=== PATIENT | male | born 1990 | race Caucasian/White ===

== ENCOUNTER 2021-06-08 16:22 | Observation (INO) ==
[2021-06-08] MEDS ORDERED: Isovue-370 500 ML BOTTLE IVP ONE ×2 (16:53)
[2021-06-08] MEDS ORDERED: 0.9 % Sodium Chloride 1,000 ML IVC ONE (16:55)
[2021-06-08] MEDS ORDERED: Famotidine 20 MG/2 ML VIAL IVP ONE (17:11)
[2021-06-08 17:24] LABS: Basophils # 0.1 K/mcL (0.0-0.2); Basophils % 0.7 %; Eosinophils # 0.2 K/mcL (0.0-0.6); Eosinophils % 2.7 %; Hematocrit 47.1 % (37.5-50.1); Hemoglobin 16.6 g/dL (12.9-16.9); Immature Granulocytes % 0.1 % (0-4); Lymphocytes # 1.6 K/mcL (0.6-4.6); Lymphocytes % 23.8 %; Mean Corpuscular HGB Conc 35.2 g/dL (31.6-35.5); Mean Corpuscular Hemoglobin 33.3 pg (28.0-33.3); Mean Corpuscular Volume 94.4 fL (83.0-100.0); Mean Platelet Volume 9.4 fL (9.4-12.4); Monocytes # 0.6 K/mcL (0.0-1.3); Monocytes % 8.5 %; Neutrophils # 4.3 K/mcL (1.6-8.9); Platelet Count 243 K/mcL (140-400); Red Blood Count 4.99 M/mcL (4.19-5.50); Red Cell Distribution Width 12.4 % (11.5-14.5); Segmented Neutrophils % 64.2 %; White Blood Count 6.7 K/mcL (4.3-11.1)
[2021-06-08 17:46] LABS: Alanine Aminotransferase 28 Units/L (7-52); Albumin 4.3 g/dL (3.5-5.7); Alkaline Phosphatase 74 Units/L (34-104); Amylase 55 Units/L (29-103); Aspartate Amino Transferase 26 Units/L (13-39); BUN/Creatinine Ratio 17 (6-26); Bilirubin,Direct 0.2 mg/dL (0.0-0.2); Bilirubin,Indirect 0.9 mg/dL (0.0-1.0); Bilirubin,Total 1.1 mg/dL (0.3-1.0); Blood Urea Nitrogen 21 mg/dL (6-20); Carbon Dioxide 32 mEq/L (23-29); Chloride 104 mEq/L (98-107); Globulin 2.2 g/dL (2.4-3.5); Glucose 99 mg/dL (70-105); Lipase 29 Units/L (11-82); Osmolality,Calculated 293 (280-300); Potassium 4.4 mEq/L (3.5-5.1); Sodium 140 mEq/L (136-145); Total Protein 6.5 g/dL (6.4-8.9); eGFR For African Americans > 60 (> 60); eGFR For Non-African Americans > 60 (> 60)
[2021-06-08 18:17] LABS: Bilirubin,Urine Negative (Negative); Blood,Urine Negative (Negative); Clarity,Urine Clear (Clear); Color,Urine Light-Yellow (Yellow); Glucose,Urine (UA) Normal (Normal); Ketones,Urine Negative (Negative); Leukocyte Esterase,Urine Negative (Negative); Nitrite,Urine Negative (Negative); PH,Urine 7.5 pH Units (5.0-8.0); Protein,Urine Trace mg/dL (Neg-Trace); Specific Gravity,Urine > 1.030 (1.010-1.025); Urobilinogen,Urine Normal (Normal)
[2021-06-08] MEDS ORDERED: Isovue-370 500 ML BOTTLE PO ONE (18:22)
[2021-06-08] MEDS ORDERED: Naloxone 0.4 MG/ML INJ IVP PRN (19:25)
[2021-06-08] MEDS ORDERED: Acetaminophen 325 MG TABLET PO PRN (19:30)
[2021-06-08] MEDS ORDERED: *HR* HYDROcodone/Acet 5/325 mg TABLET PO PRN (19:30)
[2021-06-08] MEDS ORDERED: *HR* Promethazine 25 MG/ML VIAL IM PRN (19:30)
[2021-06-08] MEDS ORDERED: Ondansetron ODT 4 MG TAB.RAPDIS SL PRN (19:30)
[2021-06-08] MEDS ORDERED: *HR* OxyCODONE Immed Rel 5 MG TABLET PO PRN (19:30)
[2021-06-08] MEDS ORDERED: Melatonin 3 MG TABLET PO PRN (19:30)
[2021-06-08] MEDS ORDERED: GI Cocktail 40 ML EACH PO ONE (20:54)
[2021-06-08] MEDS: Ringers Solution, Lactated 1,000 ML IVC SCH (21:21)
[2021-06-09 02:21] LABS: Basophils # 0.1 K/mcL (0.0-0.2); Basophils % 0.6 %; Eosinophils # 0.2 K/mcL (0.0-0.6); Eosinophils % 2.1 %; Hematocrit 42.7 % (37.5-50.1); Hemoglobin 15.3 g/dL (12.9-16.9); Immature Granulocytes % 0.2 % (0-4); Lymphocytes # 1.9 K/mcL (0.6-4.6); Lymphocytes % 21.1 %; Mean Corpuscular HGB Conc 35.8 g/dL (31.6-35.5); Mean Corpuscular Volume 94.9 fL (83.0-100.0); Monocytes # 0.9 K/mcL (0.0-1.3); Monocytes % 10.3 %; Neutrophils # 5.9 K/mcL (1.6-8.9); Platelet Count 234 K/mcL (140-400); Red Cell Distribution Width 12.2 % (11.5-14.5); Segmented Neutrophils % 65.7 %; White Blood Count 8.9 K/mcL (4.3-11.1)
[2021-06-09 02:41] LABS: BUN/Creatinine Ratio 14 (6-26); Blood Urea Nitrogen 18 mg/dL (6-20); Calcium 8.7 mg/dL (8.6-10.3); Carbon Dioxide 29 mEq/L (23-29); Chloride 104 mEq/L (98-107); Glucose 89 mg/dL (70-105); Osmolality,Calculated 289 (280-300); Potassium 4.1 mEq/L (3.5-5.1); Sodium 139 mEq/L (136-145); eGFR For African Americans > 60 (> 60); eGFR For Non-African Americans > 60 (> 60)
[2021-06-09] MEDS: Ringers Solution, Lactated 1,000 ML IVC SCH (05:18)
[2021-06-09] MEDS ORDERED: Pantoprazole 40 MG VIAL IVP SCH (06:00)
[2021-06-09 07:56] VITALS: BP 100/57; PULSE 47; TEMP 97.7; O2SAT 100
== END 2021-06-09 13:15 | disposition home or self-care (01) ==
LOC: EMEROOARM 16:22 → 3ANU 16:22 → SUATTDRO 19:11 → 3ANU 20:15
PROVIDERS: ADMIT Internal Medicine; ATTEND Internal Medicine